=== PATIENT | female | born 1970 | race African-American/Black ===

== ENCOUNTER 2019-07-04 06:46 | Emergency (ER) | payer OTHER ==
[~2019-07-04] VITALS: Ht 172.7 cm; Wt 78.0 kg
[2019-07-04] MEDS ORDERED: IBUPROFEN 600MG TABLET PO STA (07:17)
[2019-07-04 07:42] LABS: BASOPHILS % 0.9 % (0.0-2.0); EOSINOPHILS % 0.2 % (0.0-5.0); HEMATOCRIT. 31.3 % (36.0-48.0); HEMOGLOBIN. 10.3 g/dL (12.0-16.0); LYMPHOCYTES % 15.7 % (20.0-50.0); MEAN CORPUSCULAR HEMOGLOBIN 27.5 pg (28.0-32.0); MEAN CORPUSCULAR VOLUME 83.2 fL (81.0-99.0); MONOCYTES % 7.3 % (2.0-8.0); NEUTROPHILS % 75.9 % (40.0-76.0); PLATELET 369 x1000/uL (130-400); RED BLOOD CELL COUNT 3.75 mill/uL (4.2-5.4); RED CELL DISTRIBUTION WIDTH 18.7 % (11.6-14.6)
[2019-07-04 07:50] LABS: CHLORIDE 110 mEq/L (98-107)
[2019-07-04 12:30] VITALS: BP 138/82
== END 2019-07-04 12:20 | disposition home or self-care (01) ==
LOC: ER 06:46
DX: R07.89 Other chest pain (principal); R42 Dizziness and giddiness; Z90.711 Acquired absence of uterus with remaining cervical stump
CPT/HCPCS: 36415; 71045; 80053; 84484; 85025; 86850; 86900; 93005; 99284